=== PATIENT | male | born 1995 | race Caucasian/White ===

== ENCOUNTER 2017-08-27 14:24 | Emergency (ER) | payer OTHER ==
[~2017-08-27] VITALS: Ht 180.3 cm; Wt 88.5 kg
[2017-08-27 14:24] VITALS: BP 120/76
[2017-08-27] MEDS ORDERED: NAPROSYN500 MG PO (15:07)
== END 2017-08-27 16:44 | disposition home or self-care (01) ==
LOC: ER 14:24
DX: S83.92XA Sprain of unspecified site of left knee, initial encounter (principal); F10.99 Alcohol use, unspecified with unspecified alcohol-induced disorder; W18.30XA Fall on same level, unspecified, initial encounter; Y93.61 Activity, american tackle football; Y92.89 Other specified places as the place of occurrence of the external cause; Y99.8 Other external cause status

== ENCOUNTER 2019-02-12 02:12 | Emergency (ER) | payer OTHER ==
[~2019-02-12] VITALS: Ht 182.9 cm; Wt 90.7 kg
[~2019-02-12 02:12] MED LIST: NAPROSYN500 MG PO
[2019-02-12 02:17] VITALS: BP 135/91
[2019-02-12] MEDS ORDERED: BACTRIM DS TAB1 EACH PO (02:36)
== END 2019-02-12 02:51 | disposition home or self-care (01) ==
LOC: ER 02:12
DX: L03.113 Cellulitis of right upper limb (principal); M70.21 Olecranon bursitis, right elbow; Y93.89 Activity, other specified

== ENCOUNTER 2019-08-07 13:29 | Emergency (ER) | payer OTHER ==
[~2019-08-07] VITALS: Ht 182.9 cm; Wt 88.5 kg
[~2019-08-07 13:29] MED LIST changes: +BACTRIM DS TAB1 EACH PO
[2019-08-07 15:34] VITALS: BP 124/54
== END 2019-08-07 15:39 | disposition home or self-care (01) ==
LOC: ER 13:29
DX: H57.04 Mydriasis (principal); H53.8 Other visual disturbances

== ENCOUNTER 2020-06-11 15:08 | Emergency (ER) | payer OTHER ==
[~2020-06-11] VITALS: Ht 182.9 cm; Wt 92.5 kg
[2020-06-11 15:38] LABS: AMP/METHAMP Negative (Negative); BARBITURATES Negative (Negative); BENZODIAZEPINES Negative (Negative); COCAINE Negative (Negative); METHADONE Negative (Negative); OPIATES Negative (Negative); PCP Negative (Negative)
[2020-06-11 16:37] LABS: HEMATOCRIT 44.3 % (42.0-52.0); HEMOGLOBIN 15.6 gm/dL (14.0-18.0); MCHC 35.3 g/dL (28.0-37.0); MCV 84.9 fL (80.0-100.0); RBC 5.21 mil/uL (4.50-6.00); RDW 13.3 % (10.5-14.5); WBC 5.5 thou/uL (4.0-11.0)
[2020-06-11 16:46] LABS: POTASSIUM 3.9 mmol/L (3.5-5.1)
== END 2020-06-11 20:37 | disposition home or self-care (01) ==
LOC: ER 15:08
PROVIDERS: Emergency Medicine
DX: F32.9 Major depressive disorder, single episode, unspecified (principal); R45.851 Suicidal ideations; F41.9 Anxiety disorder, unspecified; Z98.890 Other specified postprocedural states